=== PATIENT | female | born 1965 | race Caucasian/White ===

== ENCOUNTER → 2016-04-30 | Outpatient (CLI) | payer OTHER ==
--- NOTE | 2016-04-30 09:43 | FL ---
EXAMINATION TYPE: FL barium enema w air contrast DATE OF EXAM: 04/30/2016 9:36 AM COMPARISON: NONE HISTORY: Z12.11 incomplete colon screen TECHNIQUE: air contrast barium enema study is performed. FINDINGS: Evaporator Repairer view of the abdomen shows overall non-obstructive bowel gas pattern. No evidence of any mass or polyp, obstructing or constricting lesion throughout the colon. No evidenc e for inflammatory bowel disease. Sigmoid diverticulosis without diverticulitis. Appendix was filled and appeared normal. The terminal ileum was refluxed and appears within normal l imits. IMPRESSION: Sigmoid diverticulosis without diverticulitis.
== END | disposition home or self-care (01) ==
LOC: RADFLMAIN 08:07
PROVIDERS: ATTEND Surgery
DX: K57.30 Diverticulosis of large intestine without perforation or abscess without bleeding (principal)
CPT/HCPCS: 74280

== ENCOUNTER → 2023-09-02 | Outpatient (CLI) | payer BC ==
--- NOTE | 2023-09-02 18:33 | BD ---
EXAMINATION TYPE: Axial Bone Density DATE OF EXAM: 09/02/2023 CLINICAL HISTORY: 57 years old Female. 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 History of Fracture in Adulthood: no Secondary Osteoporosis: 1. Type 1 Diabetes: no 2. Hyperthyroidism: no 3. Menopause before 45: yes 4. Malnutrition: no 5. Chronic liver disease: no Rheumatoid Arthritis: no Current Tobacco Use: no RISK FACTORS HISTORY OF: Surgery to Spine/Hip(right/left)/Wrist (right/left): no EXAM MEASUREMENTS: Bone mineral densitometry was performed using the TMAT System. Bone mineral density as measured about the Lumbar spine is: ----- L1-L4(G/cm2): 1.188 T Score Values are as follows: ----- L1: -0.1 ----- L2: -0.4 ----- L3: 0.0 ----- L4: 0.4 ----- L1-L4: 0.1 Z Score Values are as follows: ----- L1: 0.3 ----- L2: 0.1 ----- L3: 0.4 ----- L4: 0.9 ----- L1-L4: 0.5 Bone mineral density : baseline Bone mineral density about the R hip (g/cm2): 0.857 Bone mineral density about the L hip (g/cm2): 0.916 T Score values are as follows: -----R Neck: -1.3 -----L Neck: -0.9 -----R Total: -1.2 -----L Total: -0.7 Z Score values are as follows: -----R Neck: -0.5 -----L Neck: -0.2 -----R Total: -0.8 -----L Total: -0.3 Bone mineral density : baseline FRAX%s: The graph provided illustrates a 7.0% chance for a major osteoporotic fx and a 0.5% chance fo r the hips probability for fx in 10 years time. IMPRESSION: Osteopenia (T Score between -2.5 and -1). There is slightly increased risk of fracture and the patient may be considered for treatment. Re-Screen 2-5 years. NOTE: T-SCORE=SD OF THE YOUNG ADULT MEAN.
== END | disposition home or self-care (01) ==
LOC: RADBDWWP 14:25
PROVIDERS: ATTEND Internal Medicine Hematology & Oncology
DX: M85.89 Other specified disorders of bone density and structure, multiple sites (principal); C50.412 Malignant neoplasm of upper-outer quadrant of left female breast; Z71.3 Dietary counseling and surveillance; Z78.0 Asymptomatic menopausal state
CPT/HCPCS: 77080